=== PATIENT | male | born 1985 | race Caucasian/White ===

== ENCOUNTER 2024-06-13 14:27 | Emergency (ER) | payer MEDICARE, MEDICAID, SELFPAY ==
[2024-06-13 14:30] VITALS: BP 132/81; PULSE 80; RESP 16; TEMP 36.4; O2SAT 100; BMI 29.2
[2024-06-13 15:22] LABS: Basophils # 0.1 10^3/uL (0.0-0.1); Eosinophils # 0.4 10^3/uL (0.0-0.8); Eosinophils % 4.1 %; Hematocrit 40.3 % (37-53); Lymphocytes # 2.4 10^3/uL (0.8-4.8); Mean Corpuscular HGB Conc 32.8 g/dL (30-55); Mean Corpuscular Hemoglobin 29.7 pg (27-33); Mean Corpuscular Volume 90.6 fl (82-101); Mean Platelet Volume 8.3 fL (7.4-10.4); Monocytes # 0.9 10^3/uL (0.2-0.9); Monocytes % 9.3 %; Neutrophils # 5.49 10^3/uL (1.8-7.7); Neutrophils % 59.2 %; Nucleated Red Blood Cells % 0 %; Platelet Count 254 10^3/cmm (157-399); Red Blood Count 4.45 10^6/uL (3.85-5.65); Red Cell Distribution Width 12.3 % (12.1-15.1); White Blood Count 9.27 10^3/uL (3.29-11.43)
[2024-06-13 15:51] LABS: Alanine Aminotransferase 17 U/L (0-41); Albumin Level 4.1 g/dL (3.5-5.2); Alkaline Phosphatase 88 U/L (40-130); Anion Gap 15.1 (5-19); Aspartate Amino Transferase 15 U/L (0-40); Blood Urea Nitrogen 14 mg/dL (6-20); Calcium 9.2 mg/dL (8.5-10.5); Carbon Dioxide 25 mmol/L (22-29); Chloride 104 mmol/L (98-107); Creatinine Clr Calc Pharmacy 125.7379; Globulin 3.1 g/dL (1.3-4.6); Glomerular Filtration Rate 95.5 mL/min (90-130); Glucose 83 mg/dL (65-115); NT Pro B Type Natriuretic Pept < 36 pg/mL (0-125); Osmolality Calculated 290 mOsm/kg (285-295); Potassium 4.1 mmol/L (3.5-5.1); Sodium 140 mmol/L (136-145); Total Bilirubin 0.4 mg/dL (0.15-1.2); Total Protein 7.2 g/dL (6.6-8.7)
--- NOTE | 2024-06-13 17:01 | ED_ITS ---
Documented by User: Rolando Gonzalez DO 06/16/24 18:48 HPI - Extremity Problem 2 General: Chief complaint: Extremity Problem,Nontraumatic Stated complaint: swollen and bruised feet Time Seen by Provider: 06/13/24 16:55 History of Present Illness: 38-year-old male presents emergency room complaining of swelling and lower extremities bilaterally. Was seen earlier in the week and started on Lasix at an outside clinic. Associated symptoms: Deny chest pain, fever(s) or rash Related Data Previous Rx's Medication Instructions Recorded amoxicillin 500 mg tablet 1,000 mg (2 x 500 mg) PO Q8H 7 04/24/22 days #42 tabs furosemide 20 mg tablet 20 mg PO DAILY #20 tabs 06/13/24 Allergies Allergy/AdvReac Type Severity Reaction Status Date / Time No Known Allergies Allergy Verified 06/13/24 14:36 Review of Systems 2 Const: Denies: fever(s) or chills Card: Denies: chest pain Resp: Denies: dyspnea GI: Denies: abdominal pain : Denies: dysuria, urinary frequency or urinary urgency Musc: Denies: neck pain or back pain Skin/Breast: Denies: rash Physical Exam 2 Const: COMMON NORMALS: no acute distress GENERAL APPEARANCE: cooperative and comfortable ORIENTATION/CONSCIOUSNESS: Yes awake, Yes oriented to person, Yes oriented to place and Yes oriented to time HENMT: COMMON NORMALS: normocephalic, atraumatic and hearing grossly normal bilaterally HEAD & SCALP: normocephalic and atraumatic Resp: COMMON NORMALS: normal respiratory effort, No retractions, No use of accessory muscles and clear to auscultation bilaterally AUSCULTATION: clear to auscultation bilaterally Cardio: COMMON NORMALS: regular rate, regular rhythm and No murmurs present (Cardio) RATE: regular rate RHYTHM: regular rhythm GI: COMMON NORMALS: Soft to palpation and No hepatosplenomegaly present A USCULTATION: Yes normoactive bowel sounds PALPATION: Yes Soft to palpation, No Tenderness to palpation present (GI), No Guarding due to palpation present (GI) and Yes No hepatosplenomegaly present Extremity: COMMON NORMALS: normal to inspection, capillary refill normal, no clubbing, cyanosis or edema, no calf tenderness and no pedal edema Neuro: SENSORIUM/ORIENTATION: Yes oriented to person, Yes oriented to place and Yes oriented to time Skin: COMMON NORMALS: no rashes or lesions noted GENERAL SKIN EXAM: no rashes or lesions noted Course 2 Vital Signs: Vital signs: Vital Signs Temperature 97.6 F 06/13/24 14:30 Pulse Rate 78 06/13/24 19:10 Respiratory Rate 16 06/13/24 14:30 Blood Pressure 136/79 06/13/24 19:10 Pulse Oximetry 99 06/13/24 19:10 Oxygen Delivery Me thod Room Air 06/13/24 14:30 MDM - Extremity (Nontraumatic) Medical Decision Making Care signed out to Dr. Maria at change of shift. See final notes for diagnosis and disposition. 38 old male with bilateral lower extremity swelling checked out to me at shift change. This does not appear to be painful. D-dimer was elevated, so bilateral lower extremity ultrasound was ordered which is negative for DVT. His BNP is nondetectable. He is not spilling a significant amount of protein in his urine. His creatinine is 0.9. No significant clinically relevant cause is found. Patient is encouraged to wear compression stockings, and elevate his feet. He may continue Lasix or not. Primary care follow-up. Lab Data 06/13/24 15:17 06/13/24 15:17 Radiology Impressions Venous Duplex 06/13/24 17:24 IMPRESSION: No evidence of deep venous thrombosis in the bilateral lower extremities. Laboratory Results WBC 9.27 10^3/uL (3.29-11.43) 06/13/24 15:17 RBC 4.45 10^6/uL (3.85-5.65) 06/13/24 15:17 Hgb 13.20 g/dL (11.27-16.99) 06/13/24 15:17 Hct 40.3 % (37-53) 06/13/24 15:17 MCV 90.6 fl (82-101) 06/13/24 15:17 MCH 29.7 pg (27-33) 06/13/24 15:17 MCHC 32.8 g/dL (30-55) 06/13/24 15:17 RDW 12.3 % (12.1-15.1) 06/13/24 15:17 Plt Count 254 10^3/cmm (157-399) 06/13/24 15:17 MPV 8.3 fL (7.4-10.4) 06/13/24 15:17 Neut % (Auto) 59.2 % 06/13/24 15:17 Lymph % (Auto) 26.0 % 06/13/24 15:17 [place] % (Auto) 9.3 % 06/13/24 15:17 Eos % (Auto) 4.1 % 06/13/24 15:17 Baso % (Auto) 1.0 % 06/13/24 15:17 Neut # (Auto) 5.49 10^3/uL (1.8-7.7) 06/13/24 15:17 Lymph # (Auto) 2.4 10^3/uL (0.8-4.8) 06/13/24 15:17 [place] # (Auto) 0.9 10^3/uL (0.2-0.9) 06/13/24 15:17 Eos # (Auto) 0.4 10^3/uL (0.0-0.8) 06/13/24 15:17 Baso # (Auto) 0.1 10^3/uL (0.0-0.1) 06/13/24 15:17 Nucleated RBC % (auto) 0 % 06/13/24 15:17 Nucleated RBCs # 0.0 /100WBC 06/13/24 15:17 D-Dimer 0.82 ug/mLFEU (0-0.59) H 06/13/24 15:17 Sodium 140 mmol/L (136-145) 06/13/24 15:17 Potassium 4.1 mmol/L (3.5-5.1) 06/13/24 15:17 Chloride 104 mmol/L (98-107) 06/13/24 15:17 Carbon Dioxide 25 mmol/L (22-29) 06/13/24 15:17 Anion Gap 15.1 (5-19) 06/13/24 15:17 BUN 14 mg/dL (6-20) 06/13/24 15:17 Creatinine 0.9 mg/dL (0.7-1.2) 06/13/24 15:17 GFR Calculation 95.5 mL/min (90-130) 06/13/24 15:17 Glucose 83 mg/dL (65-115) 06/13/24 15:17 Calculated Osmolality 290 mOsm/kg (285-295) 06/13/24 15:17 Calcium 9.2 mg/dL (8.5-10.5) 06/13/24 15:17 Total Bilirubin 0.4 mg/dL (0.15-1.2) 06/13/24 15:17 AST 15 U/L (0-40) 06/13/24 15:17 ALT 17 U/L (0-41) 06/13/24 15:17 Alkaline Phosphatase 88 U/L (40-130) 06/13/24 15:17 NT-Pro-B Natriuret Pep < 36 pg/mL (0-125) 06/13/24 15:17 Total Protein 7.2 g/dL (6.6-8.7) 06/13/24 15:17 Albumin 4.1 g/dL (3.5-5.2) 06/13/24 15:17 Globulin 3.1 g/dL (1.3-4.6) 06/13/24 15:17 Procalcitonin 0.05 ng/mL (0-0.5) 06/13/24 15:17 Urine Color Dark yellow (Yellow) A 06/13/24 18:23 Urine Appearance Clear (CLEAR) 06/13/24 18:23 Urine pH 5.5 (5-7) 06/13/24 18:23 Ur Specific [place] 1.036 (1.005-1.030) H 06/13/24 18:23 Urine Protein Trace (Negative) A 06/13/24 18:23 Urine Glucose (UA) Negative (Normal) 06/13/24 18:23 Urine Ketones Negative (Negative) 06/13/24 18:23 Urine Blood Negative (Negative) 06/13/24 18:23 Urine Nitrate Negative (Negative) 06/13/24 18:23 Urine Bilirubin Negative (Negative) 06/13/24 18:23 Urine Urobilinogen 1.0 mg/dL (Negative) 06/13/24 18:23 Ur Leukocyte Esterase Negative (Negative) 06/13/24 18:23 Urine RBC 0-2 /hpf (0-2) 06/13/24 18:23 Urine WBC 6-10 /hpf (0-5) 06/13/24 18:23 Ur Squamous Epith Cells 0-5 /hpf (0-5) 06/13/24 18:23 Amorphous Sediment Not Reportable 06/13/24 18:23 Urine Bacteria None seen /hpf (NONE) 06/13/24 18:23 Hyaline Casts 4.11 /lpf 06/13/24 18:23 [place] 0.5 mmol/L (0.6-1.2) L 06/13/24 15:17 Discharge Plan Discharge Patient Disposition: Home Clinical Impression: Lower extremity edema Condition: Stable Prescriptions: Continued furosemide 20 mg tablet 20 mg PO DAILY Qty: 20 0RF No Action amoxicillin 500 mg tablet 1,000 mg PO Q8H 7 Days Qty: 42 0RF Discharge Orders: Discharge ED (Routine); Ordered 06/13/24 Ordered By: Ahmet Maria Referrals: Austin Johnson MD [Primary Care Provider] - 4-7 days Patient Instructions: Edema (ED), Opioid Safety, Pain Management Activity Restrictions/Additional Instructions: No clinically significant cause of lower extremity edema was found on your evaluation in the emergency department. Use of compression stockings to mobilize swelling is encouraged. Elevation of your legs above your waist while sitting is paramount. Standing without moving can increase swelling as well, so walking is encouraged. You may continue furosemide or not if it does not seem to be helping. Follow-up with your doctor next week. 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6 F 06/13/24 14:30 Pulse Rate 78 06/13/24 19:10 Respiratory Rate 16 06/13/24 14:30 Blood Pressure 136/79 06/13/24 19:10 Pulse Oximetry 99 06/13/24 19:10 Oxygen Delivery Sd thod Room Air 06/13/24 14:30 MDM - Extremity (Nontraumatic) Medical Decision Making 38 old male with bilateral lower extremity swelling checked out to me at shift change. This does not appear to be painful. D-dimer was elevated, so bilateral lower extremity ultrasound was ordered which is negative for DVT. His BNP is nondetectable. He is not spilling a significant amount of protein in his urine. His creatinine is 0.9. No significant clinically relevant cause is found. Patient is encouraged to wear compression stockings, and elevate his feet. He may continue Lasix or not. Primary care follow-up. Lab Data 06/13/24 15:17 06/13/24 15:17 Radiology Impressions Venous Duplex 06/13/24 17:24 IMPRESSION: No evidence of deep venous thrombosis in the bilateral lower extremities. Laboratory Results WBC 9.27 10^3/uL (3.29-11.43) 06/13/24 15:17 RBC 4.45 10^6/uL (3.85-5.65) 06/13/24 15:17 Hgb 13.20 g/dL (11.27-16.99) 06/13/24 15:17 Hct 40.3 % (37-53) 06/13/24 15:17 MCV 90.6 fl (82-101) 06/13/24 15:17 MCH 29.7 pg (27-33) 06/13/24 15:17 MCHC 32.8 g/dL (30-55) 06/13/24 15:17 RDW 12.3 % (12.1-15.1) 06/13/24 15:17 Plt Count 254 10^3/cmm (157-399) 06/13/24 15:17 MPV 8.3 fL (7.4-10.4) 06/13/24 15:17 Neut % (Auto) 59.2 % 06/13/24 15:17 Lymph % (Auto) 26.0 % 06/13/24 15:17 [place] % (Auto) 9.3 % 06/13/24 15:17 Eos % (Auto) 4.1 % 06/13/24 15:17 Baso % (Auto) 1.0 % 06/13/24 15:17 Neut # (Auto) 5.49 10^3/uL (1.8-7.7) 06/13/24 15:17 Lymph # (Auto) 2.4 10^3/uL (0.8-4.8) 06/13/24 15:17 [place] # (Auto) 0.9 10^3/uL (0.2-0.9) 06/13/24 15:17 Eos # (Auto) 0.4 10^3/uL (0.0-0.8) 06/13/24 15:17 Baso # (Auto) 0.1 10^3/uL (0.0-0.1) 06/13/24 15:17 Nucleated RBC % (auto) 0 % 06/13/24 15:17 Nucleated RBCs # 0.0 /100WBC 06/13/24 15:17 D-Dimer 0.82 ug/mLFEU (0-0.59) H 06/13/24 15:17 Sodium 140 mmol/L (136-145) 06/13/24 15:17 Potassium 4.1 mmol/L (3.5-5.1) 06/13/24 15:17 Chloride 104 mmol/L (98-107) 06/13/24 15:17 Carbon Dioxide 25 mmol/L (22-29) 06/13/24 15:17 Anion Gap 15.1 (5-19) 06/13/24 15:17 BUN 14 mg/dL (6-20) 06/13/24 15:17 Creatinine 0.9 mg/dL (0.7-1.2) 06/13/24 15:17 GFR Calculation 95.5 mL/min (90-130) 06/13/24 15:17 Glucose 83 mg/dL (65-115) 06/13/24 15:17 Calculated Osmolality 290 mOsm/kg (285-295) 06/13/24 15:17 Calcium 9.2 mg/dL (8.5-10.5) 06/13/24 15:17 Total Bilirubin 0.4 mg/dL (0.15-1.2) 06/13/24 15:17 AST 15 U/L (0-40) 06/13/24 15:17 ALT 17 U/L (0-41) 06/13/24 15:17 Alkaline Phosphatase 88 U/L (40-130) 06/13/24 15:17 NT-Pro-B Natriuret Pep < 36 pg/mL (0-125) 06/13/24 15:17 Total Protein 7.2 g/dL (6.6-8.7) 06/13/24 15:17 Albumin 4.1 g/dL (3.5-5.2) 06/13/24 15:17 Globulin 3.1 g/dL (1.3-4.6) 06/13/24 15:17 Procalcitonin 0.05 ng/mL (0-0.5) 06/13/24 15:17 Urine Color Dark yellow (Yellow) A 06/13/24 18:23 Urine Appearance Clear (CLEAR) 06/13/24 18:23 Urine pH 5.5 (5-7) 06/13/24 18:23 Ur Specific [place] 1.036 (1.005-1.030) H 06/13/24 18:23 Urine Protein Trace (Negative) A 06/13/24 18:23 Urine Glucose (UA) Negative (Normal) 06/13/24 18:23 Urine Ketones Negative (Negative) 06/13/24 18:23 Urine Blood Negative (Negative) 06/13/24 18:23 Urine Nitrate Negative (Negative) 06/13/24 18:23 Urine Bilirubin Negative (Negative) 06/13/24 18:23 Urine Urobilinogen 1.0 mg/dL (Negative) 06/13/24 18:23 Ur Leukocyte Esterase Negative (Negative) 06/13/24 18:23 Urine RBC 0-2 /hpf (0-2) 06/13/24 18:23 Urine WBC 6-10 /hpf (0-5) 06/13/24 18:23 Ur Squamous Epith Cells 0-5 /hpf (0-5) 06/13/24 18:23 Amorphous Sediment Not Reportable 06/13/24 18:23 Urine Bacteria None seen /hpf (NONE) 06/13/24 18:23 Hyaline Casts 4.11 /lpf 06/13/24 18:23 [place] 0.5 mmol/L (0.6-1.2) L 06/13/24 15:17 All radiology interpretation(s) finalized by discharge Discharge Plan Discharge Patient Disposition: Home Clinical Impression: Lower extremity edema Condition: Stable Prescriptions: Continued furosemide 20 mg tablet 20 mg PO DAILY Qty: 20 0RF No Action amoxicillin 500 mg tablet 1,000 mg PO Q8H 7 Days Qty: 42 0RF Discharge Orders: Discharge ED (Routine); Ordered 06/13/24 Ordered By: Ahmet Maria Referrals: Austin Johnson MD [Primary Care Provider] - 4-7 days Patient Instructions: Edema (ED), Opioid Safety, Pain Management Activity Restrictions/Additional Instructions: No clinically significant cause of lower extremity edema was found on your evaluation in the emergency department. Use of compression stockings to mobilize swelling is encouraged. Elevation of your legs above your waist while sitting is paramount. Standing without moving can increase swelling as well, so walking is encouraged. You may continue furosemide or not if it does not seem to be helping. Follow-up with your doctor next week. 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
[2024-06-13 17:21] LABS: D Dimer 0.82 ug/mLFEU (0-0.59)
--- NOTE | 2024-06-13 17:24 | USR_ITS ---
PROCEDURE INFORMATION: Exam: US Duplex Lower Extremity Veins, Bilateral Exam date and time: 06/13/2024 6:04 PM Age: 38 years old Clinical indication: Pain; Leg, lower; Bilateral; Additional info: Pain swelling TECHNIQUE: Imaging protocol: Real-time duplex ultrasound of the bilateral extremities with 2-D swift scale, color Doppler flow and spectral waveform analysis including responses to compression and other maneuvers (when performed) with image documentation. Complete exam focused on the lower extremity veins. COMPARISON: No relevant prior studies available. FINDINGS: Right deep veins: Unremarkable. The common femoral, femoral, proximal profunda femoral and popliteal veins are patent without thrombus. Normal Doppler waveforms. Normal compressibility and/or augmentation response. Left deep veins: Unremarkable. The common femoral, femoral, proximal profunda femoral and popliteal veins are patent without thrombus. Normal Doppler waveforms. Normal compressibility and/or augmentation response. Superficial veins: Greater saphenous veins at the saphenofemoral junctions are patent bilaterally without thrombus. Lymph nodes: Scattered prominent left inguinal lymph nodes. Soft tissues: Unremarkable. US/CV venous duplex [facility] [id number] IMPRESSION: No evidence of deep venous thrombosis in the bilateral lower extremities.
[2024-06-13 17:32] LABS: Procalcitonin 0.05 ng/mL (0-0.5)
[2024-06-13 18:39] VITALS: BP 100/69; PULSE 76; O2SAT 99
[2024-06-13 18:46] LABS: Bilirubin Urine Negative (Negative); Blood Urine Negative (Negative); Glucose Urine UA Negative (Normal); Ketones Urine Negative (Negative); Leukocyte Esterase Urine Negative (Negative); Nitrate Urine Negative (Negative); Protein Urine Trace (Negative); Urine Appearance Clear (CLEAR); Urine Color Dark Yellow (Yellow); pH Urine 5.5 (5-7)
[2024-06-13 18:49] LABS: Add Urine Microscopic? YES; Bacteria Urine None Seen /hpf; Hyaline Casts Urine 4.11 /lpf; RBC Urine 0-2 /hpf (0-2); Squamous Epithelial Cell Urine 0-5 /hpf (0-5)
[2024-06-13 18:50] LABS: Specific Gravity, Urine 1.036 (1.005-1.030)
[2024-06-13 19:10] VITALS: BP 136/79; PULSE 78; O2SAT 99
[2024-06-13 20:42] LABS: Lithium 0.5 mmol/L (0.6-1.2)
== END 2024-06-13 19:11 | disposition home or self-care (01) ==
PROVIDERS: Emergency Medicine; Family Medicine; Emergency Provider Emergency Medicine; PCP Family Medicine
DX: R60.0 Localized edema (principal)
CPT/HCPCS: 36415; 80053; 80178; 81001; 83880; 84145; 85025; 85378; 93970; 99284